=== PATIENT | female | born 1955 | race Caucasian/White ===

== ENCOUNTER 2017-02-27 18:06 | Inpatient (IN) | payer MEDICARE, OTHER ==
[2017-02-27 18:52] LABS: BASOPHILS 0.1 % (0-2); EOSINOPHILS 0.9 % (0-7); HEMOGLOBIN 10.2 g/dL (12-16); IMMATURE GRANULOCYTES 0.4 % (0-5); LYMPHOCYTES 30.1 % (15-50); MCH 24.2 pg (26.0-34.0); MCHC 29.1 g/dL (31.0-37.0); MCV 82.9 fL (80.0-100.0); MEAN PLATELET VOLUME 12.3 fL (7.4-10.4); MONOCYTES 9.9 % (2-11); NEUTROPHILS 58.6 % (40-80); PLATELET COUNT 308 10x3/uL (130-400); RBC 4.22 10x6/uL (4.00-5.40); RDW 22.3 % (11.5-14.5); WBC 11.4 10x3/uL (4.8-10.8)
[2017-02-27 19:06] LABS: ALBUMIN 3.3 g/dL (3.4-5.0); BILIRUBIN - TOTAL 0.2 mg/dL (0.2-1.3); CALCIUM 8.9 mg/dL (8.5-10.1); CARBON DIOXIDE 34.2 mmol/L (21.0-32.0); CREATININE - SERUM 1.1 mg/dL (0.6-1.3); POTASSIUM - SERUM 3.2 mmol/L (3.5-5.1); PROTEIN - SERUM 6.2 g/dL (6.4-8.2)
[2017-02-27 20:08] LABS: TROPONIN-I 0.092 ng/mL (0.000-0.060)
[2017-02-27 20:51] LABS: APPEARANCE CLEAR (CLEAR); BILIRUBIN NEGATIVE (NEGATIVE); COLOR YELLOW (YELLOW); GLUCOSE 250 mg/dL (NEGATIVE); KETONE NEGATIVE (NEGATIVE); NITRITE NEGATIVE (NEGATIVE); PROTEIN NEGATIVE (NEGATIVE); UROBILINOGEN NORMAL (NORMAL)
[2017-02-27] MEDS ORDERED: BUPROPION HCL150 M1 PO (23:11)
[2017-02-27] MEDS ORDERED: LASIX40 MG PO (23:12)
[2017-02-27] MEDS ORDERED: MIRAPEX ER4.5 MG PO (23:16)
[2017-02-27] MEDS ORDERED: ADCIRCA20 MG PO (23:20)
[2017-02-27] MEDS ORDERED: PROTONIX40 MG PO (23:20)
[2017-02-27] MEDS ORDERED: CYMBALTA60 MG PO (23:21)
[2017-02-27] MEDS ORDERED: PROVENTIL/2.5 MG/3 M INH (23:23)
[2017-02-27] MEDS ORDERED: XANAX0.5 MG PO (23:48)
[2017-02-27] MEDS ORDERED: PREDNISONE5 MG PO (23:51)
[2017-02-27] MEDS ORDERED: ZITHROMAX250 MG PO (23:51)
[2017-02-27] MEDS ORDERED: HUMULIN 70100 UNIT/1 SQ (23:52)
[2017-02-27 23:55] VITALS: BP 124/51; BMI 19.2
[2017-02-28 04:00] VITALS: BP 123/68
[2017-02-28 07:38] VITALS: BP 141/81
[2017-02-28 11:51] VITALS: BP 137/81
[2017-02-28 13:10] VITALS: BMI 19.1
[2017-02-28 15:20] LABS: % SATURATION 4 % (15-55); IRON 15 ug/dl (35-150); TOTAL IRON BIND CAPACITY 365 ug/dl (260-445); UNSAT IRON BIND CAPACITY 350 ug/dl (150-375)
[2017-02-28] MEDS ORDERED: KLOR-CON M2020 MEQ PO (15:49)
[2017-02-28] MEDS ORDERED: FLUTICASONE PRO16 GM NASAL (15:51)
[2017-02-28 15:55] VITALS: BP 129/87
--- NOTE | 2017-02-28 15:55 | NUR ---
SPOKE WITH NACHO WITH [facility]. SHE STATED THAT DR DUNCAN HAD WRITTEN AN ORDER TO HAVE THEM EVALUATE HER FOR HOSPICE. SHE STATED THAT THE PATIENT WAS ON HOSPICE WHERE SHE LIVED PREVIOUSLY, BUT DID HAVE SOME ISSUES WITH THE FACT THAT IT TOOK >1 HOURS TO ARRIVE AT HER HOUSE WHEN SHE NEEDED THEM. SHE STATED THAT SHE WAS GOING TO THE [facility] TO EVALUATE THE PATIENT AND FOUND OUT THAT SHE HAD BEEN ADMITTED TO THE HOSPITAL. I EXPLAINED TO HER THAT SHE WAS ONE OF MY NEW PATIENTS AND I HAD NOT HAD TIME TO LOOK AT HER CHART, BUT DID CONFIRM THAT SHE WAS A PATIENT HERE. SHE THANKED ME FOR MY TIME.
--- NOTE | 2017-02-28 16:30 | NUR ---
SALEEMS APPLIED AND PATENT AT THIS TIME
[2017-02-28] MEDS ORDERED: MIRAPEX1 MG PO (17:30)
[2017-02-28] MEDS ORDERED: MIRAPEX0.5 MG PO ×2 (17:31→17:38)
[2017-02-28 19:00] VITALS: BP 140/84
[2017-03-01] VITALS: BP 138/84
[2017-03-01 04:00] VITALS: BP 136/88
[2017-03-01 05:16] LABS: BASOPHILS 0 % (0-2); EOSINOPHILS 0 % (0-7); HEMATOCRIT 31.9 % (36.0-48.0); HEMOGLOBIN 9.4 g/dL (12-16); IMMATURE GRANULOCYTES 0.2 % (0-5); LYMPHOCYTES 5.5 % (15-50); MCH 24.4 pg (26.0-34.0); MCHC 29.5 g/dL (31.0-37.0); MCV 82.6 fL (80.0-100.0); MEAN PLATELET VOLUME 11.7 fL (7.4-10.4); MONOCYTES 3.7 % (2-11); NEUTROPHILS 90.6 % (40-80); PLATELET COUNT 311 10x3/uL (130-400); RBC 3.86 10x6/uL (4.00-5.40); RDW 22.1 % (11.5-14.5); WBC 13.4 10x3/uL (4.8-10.8)
[2017-03-01 05:39] LABS: ALBUMIN 3.1 g/dL (3.4-5.0); BILIRUBIN - TOTAL 0.5 mg/dL (0.2-1.3); CALCIUM 8.7 mg/dL (8.5-10.1); CARBON DIOXIDE 31.6 mmol/L (21.0-32.0); CREATININE - SERUM 0.9 mg/dL (0.6-1.3); PROTEIN - SERUM 5.7 g/dL (6.4-8.2)
[2017-03-01 05:40] LABS: ANION GAP 11.4 mmol/L (8-16)
[2017-03-01 08:00] VITALS: BP 152/83
[2017-03-01 08:16] LABS: FOLATE (FOLIC ACID) - SERUM 18.9 ng/mL (>3.0)
--- NOTE | 2017-03-01 09:42 | NUR ---
TELEMETRY SR. RESP UL ON 11L OXIMIZER. CALL LIGHT IN REACH. WILL CONT. PLAN OF CARE.
[2017-03-01 12:00] VITALS: BP 98/54
[2017-03-01 16:00] VITALS: BP 111/72
--- NOTE | 2017-03-01 19:00 | NUR ---
RECEIVED REPORT AND ASSUMED PT CARE FROM DAY SHIFT NURSE @ THIS TIME.
[2017-03-01 20:52] VITALS: BP 109/55
--- NOTE | 2017-03-01 22:30 | NUR ---
PT RESTING IN BED WITHOUT C/O OR DISTRESS NOTED. DENIES ANY C/O PAIN @ THIS TIME. REMAINS NSR ON TELE, HR 80'S. CALL LIGHT WITHIN REACH. WILL CONT TO MONITOR.
[2017-03-02 01:06] VITALS: BP 102/61
[2017-03-02 04:00] VITALS: BP 112/75
[2017-03-02 07:15] LABS: BASOPHILS 0.1 % (0-2); EOSINOPHILS 0 % (0-7); HEMATOCRIT 35.1 % (36.0-48.0); HEMOGLOBIN 10.3 g/dL (12-16); IMMATURE GRANULOCYTES 0.5 % (0-5); LYMPHOCYTES 6.2 % (15-50); MCH 24.3 pg (26.0-34.0); MCHC 29.3 g/dL (31.0-37.0); MEAN PLATELET VOLUME 11.4 fL (7.4-10.4); MONOCYTES 5.2 % (2-11); PLATELET COUNT 322 10x3/uL (130-400); RBC 4.23 10x6/uL (4.00-5.40); RDW 21.9 % (11.5-14.5); WBC 15.2 10x3/uL (4.8-10.8)
[2017-03-02 07:37] LABS: ALBUMIN 3.1 g/dL (3.4-5.0); ANION GAP 12.8 mmol/L (8-16); BILIRUBIN - TOTAL 0.42 mg/dL (0.2-1.3); CREATININE - SERUM 1.1 mg/dL (0.6-1.3); POTASSIUM - SERUM 3.8 mmol/L (3.5-5.1); PROTEIN - SERUM 5.9 g/dL (6.4-8.2)
[2017-03-02 08:00] VITALS: BP 87/55
--- NOTE | 2017-03-02 09:37 | NUR ---
IV RESTARTED WITH 22 GAUGE CATH X 1 STICK AND FLUSHED WITH NS. LINE IS PATENT.
[2017-03-02 16:00] VITALS: BP 102/57
[2017-03-02 17:07] LABS: IMMUNOGLOBULIN A 84 mg/dL (87-352); IMMUNOGLOBULIN M 18 mg/dL (26-217)
[2017-03-02 19:00] VITALS: BP 99/58
--- NOTE | 2017-03-02 19:00 | NUR ---
RECEIVED REPORT AND ASSUMED PT CARE FROM DAY SHIFT NURSE @ THIS TIME.
[2017-03-03] VITALS: BP 100/58
[2017-03-03 04:22] VITALS: BP 111/66
[2017-03-03 05:34] LABS: BASOPHILS 0 % (0-2); EOSINOPHILS 0 % (0-7); HEMATOCRIT 34.2 % (36.0-48.0); HEMOGLOBIN 10.3 g/dL (12-16); IMMATURE GRANULOCYTES 1.2 % (0-5); LYMPHOCYTES 8.7 % (15-50); MCH 24.9 pg (26.0-34.0); MCHC 30.1 g/dL (31.0-37.0); MCV 82.6 fL (80.0-100.0); MEAN PLATELET VOLUME 12.2 fL (7.4-10.4); MONOCYTES 4.3 % (2-11); NEUTROPHILS 85.8 % (40-80); PLATELET COUNT 332 10x3/uL (130-400); RBC 4.14 10x6/uL (4.00-5.40); RDW 22.5 % (11.5-14.5)
[2017-03-03 05:47] LABS: WBC 9.7 10x3/uL (4.8-10.8)
[2017-03-03 05:58] LABS: ALBUMIN 2.7 g/dL (3.4-5.0); ANION GAP 14.5 mmol/L (8-16); BILIRUBIN - TOTAL 0.31 mg/dL (0.2-1.3); CALCIUM 8.1 mg/dL (8.5-10.1); CARBON DIOXIDE 30.4 mmol/L (21.0-32.0); CREATININE - SERUM 1.1 mg/dL (0.6-1.3); POTASSIUM - SERUM 3.9 mmol/L (3.5-5.1); PROTEIN - SERUM 5.2 g/dL (6.4-8.2)
[2017-03-03 08:00] VITALS: BP 197/147
--- NOTE | 2017-03-03 10:05 | NUR ---
RESP UL ON 02 5L OXIMIZER. TELEMETRY SR. SITTING UP SOB WITH CALL LIGHT IN REACH. WILL CONT. PLAN OF CARE.
[2017-03-03 11:43] VITALS: BP 99/36
[2017-03-03 12:13] LABS: IMMUNOGLOBULIN E 53 IU/mL (0-100)
--- NOTE | 2017-03-03 12:51 | NUR ---
Nutrition Follow Up: Pt is eating 96% meal avg on a diabetic no added salt diet. Wt gain noted. No BM since admit. Labs reviewed - Glucose elevated. Meds noted including Solu-Medrol, Lasix. Rec continue current diet. RD following.
[2017-03-03 13:04] LABS: HEMOGLOBIN A1C 9.9 % (4.8-6.0)
[2017-03-03 16:00] VITALS: BP 103/53
[2017-03-03 19:13] VITALS: BP 111/55
--- NOTE | 2017-03-03 20:14 | NUR ---
CM visited with the patient at the bedside. Explained I was present to assist with d/c planning. CM ask patient if she had spoken with [facility]. The patient seemed surprised. She stated she had not considered hospice but ," okay ". She stated her sister had been helping her get settled , so maybe she had requested information. CM said "lets start over ". " What is your discharge plan" She stated she wanted to get settled into her little apartment. She relocated from [place] on 02/21/17. She has moved into [facility]. PCP- [facility]- She thinks [facility] DME- [facility]- oxygen stationary and portable, had a nebulizer, cane and rollator. Her nebulizer got lost in the relocation. It was approximately 7 yrs old. She needs a new one. She is thinking about getting a scooter. home health- CM advised patient of providers for h/h. She is familiar w/ some of the providers. Had [facility] in [place] on & off as needed. No decision at this time. Her sister is helping her. Sister- Kerry Judd- [phone]. Plan is for discharge to home w/ home health. The patient has not considering hospice care as per our discussion. CM had reviewed MD notes regarding discussion of hospice with patient prior to visit. She is not recalling that discussion. CM will assist as is appropriate w/ planning.
[2017-03-04] VITALS: BP 104/52
--- NOTE | 2017-03-04 03:30 | NUR ---
LEFT FOREARM IV LEAKING WHILE BEING FLUSHED. RESITED TO RIGHT FOREARM WITH 22 GA ANGIOCATH X2 STICKS. PT TOLERATED WELL. DRESSING PER POLICY.
[2017-03-04 04:28] VITALS: BP 113/63
[2017-03-04 05:14] LABS: IGG SUBCLASS 1 99 mg/dL (248-810); IGG SUBCLASS 2 47 mg/dL (130-555); IGG SUBCLASS 3 11 mg/dL (15-102); IGG SUBCLASS 4 7 mg/dL (2-96)
[2017-03-04 05:57] LABS: BASOPHILS 0.1 % (0-2); EOSINOPHILS 0.5 % (0-7); HEMATOCRIT 34.6 % (36.0-48.0); HEMOGLOBIN 10.1 g/dL (12-16); LYMPHOCYTES 36.7 % (15-50); MCH 24.4 pg (26.0-34.0); MCHC 29.2 g/dL (31.0-37.0); MCV 83.6 fL (80.0-100.0); MEAN PLATELET VOLUME 11.9 fL (7.4-10.4); MONOCYTES 10.5 % (2-11); NEUTROPHILS 51.2 % (40-80); PLATELET COUNT 324 10x3/uL (130-400); RBC 4.14 10x6/uL (4.00-5.40); RDW 23.2 % (11.5-14.5); WBC 11.5 10x3/uL (4.8-10.8)
[2017-03-04 06:10] LABS: ALBUMIN 2.7 g/dL (3.4-5.0); ANION GAP 5.3 mmol/L (8-16); BILIRUBIN - TOTAL 0.3 mg/dL (0.2-1.3); CALCIUM 8.2 mg/dL (8.5-10.1); CARBON DIOXIDE 37.2 mmol/L (21.0-32.0); CREATININE - SERUM 1.2 mg/dL (0.6-1.3); POTASSIUM - SERUM 3.5 mmol/L (3.5-5.1)
[2017-03-04 09:05] VITALS: BP 97/50
--- NOTE | 2017-03-04 09:43 | NUR ---
ASSESSMENT COMPLETED. TELEMERTY SHOWS SR AT 96. O2 AT 4 L/M PER NC. UP AB ROMÁN. CALL LIGHT IN REACH WITH SR UP. WILL MONITIOR
[2017-03-04 12:16] VITALS: BP 101/52
--- NOTE | 2017-03-04 12:40 | NUR ---
Patient Name: MENDEZ DELVALLE Encounter No: [id number] : 1955 Primary Insurance: MEDICARE A & B Anticipated DC Date: Planned Disposition: Home with Home Health External Planned Provider: [facility] DCP follow-up note: CM MET WITH PT IN ROOM TO DISCUSS DISCHARGE NEEDS AND PLANNING. CM DISCUSSED AVAILABILITY OF HOME HEALTH, REHAB SERVICES AND MEDICAL EQUIPMENT. PT DOES NOT WANT HOSPICE AND WANTS HOME HEALTH. PT THINKS SHE WILL BE USING [facility] AND WANTS TO SPEAK TO HER SISTER BEFORE SIGNING A CHOICE FORM. CM PROVIED CHOICE FORM. FAMILY TO TRANSPORT HOME AT DISCHARGE. PT AGREED TO HAVE [facility] COME AND SPEAK TO HER LONG THEY ARE NOT HIGH PRESSURE AND TRY TO SELL HER SOMTHING. IMPORTANT MESSAGE FROM MEDICARE PROVIDED AND EXPLAINED. PT'S SISTER, ANOOP CHRISTIANSON ARRIVED, SPOKE TO CM AND ADVISED THAT SHE AND PT HAVE DISCUSSED HOME HEALTH AND HOSPICE, PT WANTS NEITHER. PT HAS [facility] AND WILL LET THE [facility] NURSE KNOW IF HOME HEALTH IS NEEDED IN THE FUTURE. PT HAS A [facility], [facility] THAT SHE CAN HIRE IF NEEDED AND ANOOP LIVES 5 MINUTES AWAY. PT DENIES DISCHARGE NEEDS, WILL DISCHARGE HOME TO [facility], PT'S SISTER TO TRANSPORT. Russell Espinal, CASE MANAGEMENT
--- NOTE | 2017-03-04 14:48 | NUR ---
LYING QUIETLY WITH EYES CLOSED. WILL MONITOR. TELEMERTY SHOWS SR
[2017-03-04 15:25] VITALS: BP 91/52
[2017-03-04] MEDS ORDERED: TOPROL XL25 MG PO (15:51)
[2017-03-04] MEDS ORDERED: PROVENTIL/2.5 MG/3 M INH (15:56)
[2017-03-04] MEDS ORDERED: FERROUS SULFAT325 MG PO (15:56)
--- NOTE | 2017-03-04 16:18 | NUR ---
Patient Name: MENDEZ DELVALLE Encounter No: [id number] : 1955 Primary Insurance: MEDICARE A & B Anticipated DC Date: 03-04-2017 Planned Disposition: Home DCP follow-up note: CM RECEIVED DISCHARGE ORDER, MET WITH PT IN ROOM, DISCUSSED NEBULIZER ORDER, PT WOULD LIKE PRESCRIPTION SENT TO [facility]. CM DISCUSSED HOME HEALTH ORDER, PT REPORTS SHE TALKED TO HER SISTER AND THEY DECIDED AGAINST HOME HEALTH AND WILL GO WITH [facility]. PT CALLED HER SISTER, ANOOP, , WHO SPOKE TO CM VIA PHONE. ANOOP EXPLAINED THAT PT DOES NOT NEED THERAPY AT THIS TIME, AND THEY CAN ARRANGE PT'S MEDICATIONS AT HOME, THAT [facility] WOULD BE SUFFICIENT AT THIS TIME AND IF NEEDED IN THE FUTURE, THEY WILL ASK [facility] N[facility]SE TO ARRANGE HOME HEALTH. ANOOP WILL BRING PORTABLE OXYGEN TO [facility] TODAY AND WILL` [facility] NEBULIZER AT [facility] ON THE WAY TO [facility] TODAY. CM CALLED [facility], , PROVIDED REFERRAL INFORMATION TO [facility], FAXED REFERRAL TO [facility] AT [phone]. PT NOTIFIED WHO DENIED FURHTER DISCHARGE NEEDS. CM NOTIFIED ELADIO HERR AND DR. AUGUSTINE THAT PT AND SISTER DECLINED HOME HEALTH AT THIS TIME. NO FURTHER NEEDS NOTED AT THIS TIME. Russell Espinal, CASE MANAGEMENT
--- NOTE | 2017-03-04 16:37 | NUR ---
ADVISED PATIENT TO TAKE ASPIRIN 81MG DAILY. STATIN TO BE ADDRESSED AT NEXT APPT TIME PER NORMA HERR/DARELL.
--- NOTE | 2017-03-04 17:24 | NUR ---
pt DISCHARGED. IV DCD WITH TIP INTACT. INSTRUCTIONS GIVEN TO PT. TO PRIVATE CAR PER WHEELCHAIR.
--- NOTE | 2017-03-24 15:54 | DS ---
PATIENT:MENDEZ DELVALLE :53 MEDICAL RECORD: [id number] DISCHARGE SUMMARY ADMISSION DATE: 02/27/17 DISCHARGE DATE: 03/04/17 ADMISSION DATE: 02/27/2017 DISCHARGE DATE: 03/04/2017 DISCHARGE DIAGNOSES: 1. Non-Q-wave myocardial disease. 2. Severe prfdp-fz-litbpix hypoxic respiratory failure. 3. Severe idiopathic pulmonary fibrosis. 4. Chronic obstructive pulmonary disease, oxygen and steroid dependent. 5. Pulmonary hypotension. 6. Wtvsc-ad-tsdudsw diastolic dysfunction. 7. Hypotension. 8. Leukocytosis. CONSULTS: 1. Alex Gonsalves MD. 2. Cassius Lockwood MD. IMAGES OR STUDIES: 1. Chest, which shows severe pulmonary fibrosis. 2. CT angio of the chest shows no evidence of pulmonary emboli with severe fibrotic and cystic changes in the upper lung cruz. 3. A 2D echocardiogram, which shows an EF of 65% with mild calcified aortic stenosis with a gradient of 1.3 cm. The patient had a mild MR and severe TR with pulmonary artery pressure of 78 mmHg. HOSPITAL COURSE: The full H&P is listed elsewhere in the chart for this 61-year-old female patient who was admitted with chest pain and dyspnea. The patient had an elevated troponin, indicative of a non-Q-wave CO. This is secondary to her respiratory status, her hypoxic respiratory failure, so she was placed on supplemental O2, aggressive pulmonary toilet with mucolytics, IV steroids and empiric antibiotic coverage. Pulmonary and cardiology were consulted during her hospitalization. In terms of her non-Q-wave CO, due to her severe respiratory status, it was opted to treat her medically with aspirin and beta blockade. She underwent a 2D echo, see those findings above. The patient's clinical condition did stabilize with aggressive antibiotic and pulmonary toilet. She was thought to be stable to discharge to home to follow up in the outpatient setting. See med rec. TRANSINT:[id number] Voice Confirmation ID: [id number] DOCUMENT ID: [id number] Dictated By: SANDRA SANCHEZ I have interviewed/examined the above patient and agree with these documented findings. at 1110 at 1559 CC: [id number] DICTATION DATE: 03/19/17 1543 PRICING MANAGER: 03/20/17 0507 DIS IN 03/04/17 [facility] [address] [place] [address]
--- NOTE | 2017-03-28 16:56 | EC ---
PATIENT:MENDEZ DELVALLE DATE OF SERVICE: 02/27/17 SEX: F MEDICAL RECORD: [id number] DATE OF : [birth year] LOCATION:D.M2 D.211 AGE OF PATIENT: 62 ADMISSION DATE: 02/27/17 REFERRING PHYSICIAN: INTERPRETING PHYSICIAN: MATHEW GONSALVES MD ECHOCARDIOGRAM REPORT ECHO CHARGES 4 ECHO COMPLETE CLINICAL DIAGNOSIS: CHF HX OF PULMONARY FIBROSIS ECHOCARDIOGRAPHIC MEASUREMENTS (adult normal given) AC root (d.<3.7cm) 3.0 cm LV Septum d (<1.2 cm> 1.2 cm Valve Excursion 0.7 cm LV Septum (systole) 1.4 cm Left Atria (s.<4.0cm> 2.8 cm LVPW d(<1.2cm) 1.5 cm RV (d.<2.3cm) 2.7 cm LVPW (sytole) 1.6 cm LV diastole(<5.6CM) 3.3 cm MV E-F(>70mm/sec) cm LV systole 1.8 cm LVOT Diameter 1.3 cm MV exc.(>10mm) cm Est.ejection fraction (50-75%) % Pericardial Effusion N DOPPLER: LVIT cm/sec A 86.0 cm/sec E 50.0 cm/sec LA cm/sec RVSP 78 mmHg LVOT 106 cm/sec AOP1/2T m/s Asc. Ao 218 cm/sec RVOT 96 cm/sec RA cm/sec PA 120 cm/sec AV Gradient Peak 19.02mmHg AV Mean 9.81 mmHg AV Area 1.3 cm MV Gradient Peak 5.69 mmHg MV Mean 1.57 mmHg MV Area cm COMMENTS: Control Room Operator: Otoniel DANIELS Engineering Documentation Specialist: 1 Dr. Gonsalves TAPE# PACS DATE OF SERVICE: 02/28/2017 Echocardiogram FINDINGS: 1. Left ventricular chamber size is within normal limits. Left ventricular systolic function is normal. Overall ejection fraction estimated at 65%. 2. Left atrium, right atrium, and right ventricular chamber sizes are within normal limits. 3. Valvular structures: Aortic valve demonstrates mild calcific aortic ECHOCARDIOGRAM REPORT [id number] MENDEZ DELVALLE stenosis. Valve area calculates to 1.3 cm-squared. There is a gradient of 19 mm across the valve. The remaining valvular structures have normal structure and motion. 4. Doppler interrogation reveals mild mitral regurgitation, severe tricuspid regurgitation. Pulmonary systolic pressure is estimated at 78 mmHg. 5. No evidence of pericardial effusion or left ventricular thrombus. TRANSINT:[id number] Voice Confirmation ID: [id number] DOCUMENT ID: [id number] 03/11/2017 Edited to correct date of service, dm. MATHEW GONSALVES MD at 1656 CC: [id number] DICTATION DATE: 03/03/17 1030 OIL SPRAYER: 03/03/17 1156 DIS IN 03/04/17 [id number] [place] [address]
== END 2017-03-04 17:29 | disposition home or self-care (01) | DRG 280 ==
LOC: D.ER 18:06 → EDBD 18:06 → D.M2 22:32 → D.SDCHOLD 02-28 20:26 → D.M2 02-28 20:36
PROVIDERS: Emergency Medicine; Family Medicine; Internal Medicine Pulmonary Disease; ADMIT Family Medicine
DX: I21.4 Non-ST elevation (NSTEMI) myocardial infarction (principal); J96.21 Acute and chronic respiratory failure with hypoxia; I50.33 Acute on chronic diastolic (congestive) heart failure; D80.3 Selective deficiency of immunoglobulin G [IgG] subclasses; J84.112 Idiopathic pulmonary fibrosis; Z99.81 Dependence on supplemental oxygen; I11.0 Hypertensive heart disease with heart failure; J44.9 Chronic obstructive pulmonary disease, unspecified; K21.9 Gastro-esophageal reflux disease without esophagitis; F41.9 Anxiety disorder, unspecified; F32.9 Major depressive disorder, single episode, unspecified; Z87.891 Personal history of nicotine dependence; E87.6 Hypokalemia; R04.0 Epistaxis; E86.0 Dehydration; I08.1 Rheumatic disorders of both mitral and tricuspid valves; D50.9 Iron deficiency anemia, unspecified; E11.9 Type 2 diabetes mellitus without complications

== ENCOUNTER 2017-04-11 14:54 | Emergency (ER) | payer MEDICARE, OTHER ==
[~2017-04-11 14:54] MED LIST: ADCIRCA20 MG PO; BUPROPION HCL150 M1 PO; CYMBALTA60 MG PO; FERROUS SULFAT325 MG PO; FLUTICASONE PRO16 GM NASAL; HUMULIN 70100 UNIT/1 SQ; KLOR-CON M2020 MEQ PO; LASIX40 MG PO; MIRAPEX ER4.5 MG PO; MIRAPEX0.5 MG PO; MIRAPEX1 MG PO; PREDNISONE5 MG PO; PROTONIX40 MG PO; PROVENTIL/2.5 MG/3 M INH; TOPROL XL25 MG PO; XANAX0.5 MG PO; ZITHROMAX250 MG PO
[2017-04-11 15:40] LABS: BASOPHILS 0.2 % (0-2); EOSINOPHILS 0.1 % (0-7); HEMATOCRIT 38.6 % (36.0-48.0); HEMOGLOBIN 11.1 g/dL (12-16); IMMATURE GRANULOCYTES 0.8 % (0-5); LYMPHOCYTES 16.4 % (15-50); MCH 24.5 pg (26.0-34.0); MCHC 28.8 g/dL (31.0-37.0); MCV 85.2 fL (80.0-100.0); MEAN PLATELET VOLUME 11.9 fL (7.4-10.4); MONOCYTES 5.2 % (2-11); NEUTROPHILS 77.3 % (40-80); PLATELET COUNT 366 10x3/uL (130-400); RBC 4.53 10x6/uL (4.00-5.40); RDW 19.7 % (11.5-14.5); WBC 17.6 10x3/uL (4.8-10.8)
[2017-04-11 16:07] LABS: ALBUMIN 3.7 g/dL (3.4-5.0); ANION GAP 21.5 mmol/L (8-16); BILIRUBIN - TOTAL 0.93 mg/dL (0.2-1.3); CALCIUM 9.5 mg/dL (8.5-10.1); CARBON DIOXIDE 25.5 mmol/L (21.0-32.0); CREATININE - SERUM 1.9 mg/dL (0.6-1.3); PROTEIN - SERUM 6.7 g/dL (6.4-8.2)
[2017-04-11 16:36] LABS: AMYLASE - SERUM 35 U/L (25-115); LIPASE 199 U/L (73-393)
[2017-04-11 17:18] LABS: APPEARANCE CLEAR (CLEAR); BILIRUBIN NEGATIVE (NEGATIVE); COLOR YELLOW (YELLOW); GLUCOSE NEGATIVE (NEGATIVE); KETONE NEGATIVE (NEGATIVE); NITRITE NEGATIVE (NEGATIVE); PROTEIN TRACE mg/dL (NEGATIVE); SPECIFIC GRAVITY 1.015 (1.005-1.020); UROBILINOGEN NORMAL (NORMAL)
== END 2017-04-11 19:25 | disposition home or self-care (01) ==
LOC: D.ER 14:54
PROVIDERS: Emergency Medicine; Physician Assistant
DX: R10.11 Right upper quadrant pain (principal); J84.10 Pulmonary fibrosis, unspecified; N28.9 Disorder of kidney and ureter, unspecified; J44.9 Chronic obstructive pulmonary disease, unspecified; I50.9 Heart failure, unspecified